=== PATIENT | female | born 1995 | race African-American/Black ===

== ENCOUNTER 2018-07-29 01:12 | Emergency (ER) | payer BC, SELFPAY ==
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
[2018-07-29] MEDS ORDERED: ISOVUE-370 76%-LOCM 1 ML ONE (11:04)
== END 2018-07-29 02:35 | disposition home or self-care (01) ==
LOC: ERS 01:12
DX: R07.9 Chest pain, unspecified (principal); D50.9 Iron deficiency anemia, unspecified; I10 Essential (primary) hypertension; Z79.899 Other long term (current) drug therapy; W22.8XXA Striking against or struck by other objects, initial encounter
CPT/HCPCS: 70450; 71045; 71260; 72125; 72170; 74177; Q9966